=== PATIENT | female | born 1990 | race African-American/Black ===

== ENCOUNTER 2017-02-25 09:57 | Outpatient (CLI) | payer OTHER ==
[~2017-02-25] VITALS: Ht 162.6 cm; Wt 53.0 kg
[~2017-02-25 09:57] MED LIST: ACET50TA PO; IBUP80TA PO; PRENTAB55 PO; TRAN200T PO
== END 2017-02-25 11:24 | disposition home or self-care (01) ==
LOC: M LDO 09:57
PROVIDERS: ATTEND Obstetrics & Gynecology
DX: O21.9 Vomiting of pregnancy, unspecified (principal); Z3A.20 20 weeks gestation of pregnancy

== ENCOUNTER 2017-03-26 13:49 | Outpatient (CLI) | payer OTHER ==
[~2017-03-26] VITALS: Ht 162.6 cm; Wt 60.0 kg
[2017-03-26 14:06] VITALS: BP 132/75
[2017-03-26 15:42] VITALS: BP 170/93
[2017-03-26 15:46] VITALS: BP 167/87
[2017-03-26 15:47] VITALS: BP 143/64
== END 2017-03-26 15:43 | disposition home or self-care (01) ==
LOC: M LDO 13:49
PROVIDERS: ATTEND Obstetrics & Gynecology
DX: O26.852 Spotting complicating pregnancy, second trimester (principal); Z3A.25 25 weeks gestation of pregnancy; Z88.0 Allergy status to penicillin

== ENCOUNTER 2017-04-03 10:39 | Outpatient (CLI) | payer OTHER ==
[~2017-04-03] VITALS: Ht 162.6 cm; Wt 62.0 kg
[2017-04-03 11:02] VITALS: BP 119/59
--- NOTE | 2017-04-03 13:23 | IPNPDOC ---
Text Note Date of Service The patient was seen on 04/03/17. NOTE Jeanne is a 27yo with SIUP at approximately 26wk who presents to triage today with 2 complaints: uterine cramping last night that resolved and off-again on-again extremity swelling. She was last seen here a week ago for vaginal spotting and was discharged after reassuring exam. She notes she had GHTN in prior and the swelling makes her nervous. She is not currently cramping or swelling. No lof, feels good movement. No headaches or vision changes. No abdominal pain. Vitals wnl (normotensive), afebrile General: WDWN, resting comfortably in bed Abdomen: gravid, soft, NTTP, no ctx palpated Extremities: NO edema of BLE NST: reassuring for gestational age with mod kevin, +accels, -decels [place]: NO uterine activity Assessment: Jeanne is a 27yo with SIUP at approximately 26wk with no signs of labor or pre-eclampsia. Normal complaints of . Reassuring status, no uterine activity on toco. Benign exam with normal vital signs. 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 Work note provided for command to adhere to profile. Encouraged her to speak with her command and if they continue to not comply, at her 28wk visit she needs to let us know so we can contact her command -All questions answered -safe for discharge home MD CHERRIE Andres,Jess, I+O VSJess, I+O Vital Signs Date Time Temp Pulse Resp B/P (MAP) Pulse Ox O2 Delivery O2 Flow Rate FiO2 04/03/17 11:02 99.1 77 119/59 (79) JEANETTE ANDERSON MD Apr 03, 2017 13:23
== END 2017-04-03 13:05 | disposition home or self-care (01) ==
LOC: M LDO 10:39
PROVIDERS: ATTEND Obstetrics & Gynecology
DX: O26.892 Other specified pregnancy related conditions, second trimester (principal); Z3A.26 26 weeks gestation of pregnancy; O62.0 Primary inadequate contractions